=== PATIENT | female | born 1950 | race Caucasian/White ===

== ENCOUNTER 2017-09-12 08:47 | Inpatient (IN) | payer MEDICARE ==
[~2017-09-12] VITALS: Ht 160 cm; Wt 56.0 kg
[2017-09-12] MEDS ORDERED: CLOP75TA PO (09:41)
[2017-09-12] MEDS ORDERED: POTA595T (09:41)
[2017-09-12] MEDS ORDERED: BUSP15TA PO (09:41)
[2017-09-12] MEDS ORDERED: OMEGCAP PO (09:41)
[2017-09-12] MEDS ORDERED: COQ-100C5 (09:41)
[2017-09-12] MEDS ORDERED: ACET300T2 PO (09:41)
[2017-09-12] MEDS ORDERED: CYCL10TA PO (09:41)
[2017-09-12] MEDS ORDERED: VITA2000 PO (09:41)
[2017-09-12] MEDS ORDERED: LOVA10TA PO (09:41)
[2017-09-12] MEDS ORDERED: FLAX100015 (09:41)
[2017-09-12] MEDS ORDERED: CALC1TAB87 PO (09:41)
[2017-09-12] MEDS ORDERED: ZOLP10TA3 PO (09:41)
[2017-09-12] MEDS ORDERED: MULT1TAB46 (09:41)
[2017-09-12] MEDS ORDERED: VITA100021 SL (09:41)
[2017-09-12] MEDS ORDERED: LISI10TA3 PO (09:41)
[2017-09-12] MEDS ORDERED: VITA250T3 PO (09:41)
[2017-09-12] MEDS ORDERED: IRON18TA (09:41)
[2017-09-12] MEDS ORDERED: MELA1TAB18 PO (09:41)
[2017-09-12] MEDS ORDERED: MAGN400C3 (09:41)
[2017-09-12] MEDS ORDERED: CHLORHEXIDINE GLUCONATE 2 % 1 PACK (2 CLOTHS) TOPICAL PRN (10:00)
[2017-09-12] MEDS ORDERED: POVIDONE IODINE 5% (ANTISEPSIS KIT) 4 APPLICATIONS EACH NARE PRN (10:00)
[2017-09-12] MEDS ORDERED: LACTATED RINGER'S 1000 ML IV PRN (10:00)
[2017-09-12] MEDS ORDERED: SODIUM CHLORID 0.9% 500 ML IV PRN (10:00)
[2017-09-12] MEDS ORDERED: METOPROLOL TARTRATE 25 MG TAB PO PRN (10:00)
--- NOTE | 2017-09-12 10:00 | RADRPT ---
EXAM DATE: 09/12/2017 9:51 AM EDT AGE/SEX: 66 years / Female INDICATIONS: Evaluate for pneumonia, pneumothorax and communicable diseases. Pre-op for fem pop. CLINICAL DATA: This is the patient's initial encounter. Patient reports that signs and symptoms have been present for 1 day and indicates a pain score of 0/10. MEDICAL/SURGICAL HISTORY: None. None. COMPARISON: No prior exams available for comparison. FINDINGS: A single AP view of the chest demonstrates the lungs to be symmetrically aerated without evidence of mass, infiltrate or effusion. The cardiomediastinal contours are unremarkable. Osseous structures a re intact. CONCLUSION: No acute cardiopulmonary findings. Electronically signed by: Colin Quintero MD 09/12/2017 9:58 AM EDT
[2017-09-12] MEDS ORDERED: ceFAZolin 2 GM PREMIX 0 ML ONE (10:23)
[2017-09-12] MEDS ORDERED: HEPARIN SODIUM - SQ 10,000 UNITS/ML VIAL ONE ×2 (10:23→12:20)
[2017-09-12] MEDS ORDERED: HEPARIN SODIUM - IV 10,000 UNITS/10 ML VIAL ONE ×2 (10:24→12:21)
[2017-09-12] MEDS ORDERED: PROTAMINE SULFATE 50 MG/5 ML VIAL ONE ×2 (10:24→12:21)
[2017-09-12 10:39] LABS: AUTOMATED NEUTROPHIL # 5.2 TH/MM3 (1.8-7.7); BASOPHIL # 0.1 TH/MM3 (0-0.2); BASOPHIL % 1.1 % (0.0-2.0); EOSINOPHIL # 0.2 TH/MM3 (0-0.4); EOSINOPHIL % 2.8 % (0.0-4.0); HEMATOCRIT 35.4 % (35.0-46.0); HEMOGLOBIN 11.8 GM/DL (11.6-15.3); LYMPH % 20.6 % (9.0-44.0); LYMPHOCYTE # 1.5 TH/MM3 (1.0-4.8); MEAN CELL VOLUME 95.6 FL (80.0-100.0); MEAN CORPUSCULAR HEMOGLOBIN 31.9 PG (27.0-34.0); MEAN CORPUSCULAR HGB CONC 33.4 % (32.0-36.0); MEAN PLATELET VOLUME 6.9 FL (7.0-11.0); MONO % 5.2 % (0.0-8.0); MONOCYTE # 0.4 TH/MM3 (0-0.9); NEUT % 70.3 % (16.0-70.0); PLATELET COUNT 543 TH/MM3 (150-450); RED CELL DISTRIBUTION WIDTH 14.4 % (11.6-17.2); WHITE BLOOD COUNT 7.4 TH/MM3 (4.0-11.0)
[2017-09-12 10:47] LABS: INTERNATIONAL NORMALIZED RATIO 0.9 RATIO; PROTHROMBIN TIME - PATIENT 9.6 SEC (9.8-11.6)
[2017-09-12 11:15] LABS: ALBUMIN 2.9 GM/DL (3.4-5.0); ALT (GPT) 19 U/L (10-53); AST (GOT) 15 U/L (15-37); BICARBONATE 24.5 MEQ/L (21.0-32.0); BLOOD UREA NITROGEN 11 MG/DL (7-18); CALCIUM 9.2 MG/DL (8.5-10.1); CHLORIDE 108 MEQ/L (98-107); CREATININE 0.81 MG/DL (0.50-1.00); GLOMERULAR FILTRATION RATE 70 ML/MIN (>89); GLUCOSE,RANDOM 87 MG/DL (74-106); SODIUM (NA) 141 MEQ/L (136-145)
[2017-09-12 11:17] LABS: ALKALINE PHOSPHATASE 64 U/L (45-117); TOTAL BILIRUBIN ADULT 0.3 MG/DL (0.2-1.0); TOTAL PROTEIN 6.2 GM/DL (6.4-8.2)
[2017-09-12] MEDS ORDERED: ePHEDrine/NS 25 MG/5 ML SYRINGE IV ONE (12:00)
[2017-09-12] MEDS ORDERED: DEXAMETHASONE SOD PHOS 4 MG/ML VIAL IV ONE (12:00)
[2017-09-12] MEDS ORDERED: GLYCOPYRROLATE 1 MG/5 ML SYRINGE IV PUSH ONE (12:00)
[2017-09-12] MEDS ORDERED: PROPOFOL 200 MG/20 ML AMP IV ONE (12:00)
[2017-09-12] MEDS ORDERED: ONDANSETRON HCL 4 MG/2 ML VIAL IV PUSH ONE (12:00)
[2017-09-12] MEDS ORDERED: ROCURONIUM INJ 50 MG/5 ML SYRINGE IV PUSH ONE (12:00)
[2017-09-12] MEDS ORDERED: LIDOCAINE HCL 1% PF 5 ML SYRINGE OTHER ONE (12:00)
[2017-09-12] MEDS ORDERED: NEOSTIGMINE 5 MG/5 ML SYRINGE IV PUSH ONE (12:00)
[2017-09-12] MEDS ORDERED: PHENYLEPHRINE HCL 10 MG/ML VIAL IV ONE (12:00)
[2017-09-12] MEDS ORDERED: PHENYLEPH/NS 1000 MCG/10 ML SYR IV ONE (12:00)
[2017-09-12] MEDS ORDERED: ceFAZolin 2 GM PREMIX 50 ML ONE (12:20)
[2017-09-12] MEDS ORDERED: DO NOT ADM ANY ANTICOAGULANT DRUGS PRN (17:40)
[2017-09-12] MEDS ORDERED: SODIUM CHLORIDE 0.9% FLUSH 10 ML FLUSH IV FLUSH PRN ×2 (17:45)
[2017-09-12] MEDS ORDERED: Post-op Orders (for Pharmacy) XX ONE ×3 (17:45)
[2017-09-12] MEDS ORDERED: NALOXONE HCL 0.4 MG/ML AMP IV PUSH PRN ×2 (17:45)
[2017-09-12] MEDS ORDERED: MORPHINE SULFATE 4 MG/ML INJ ONE (17:47)
[2017-09-12] MEDS ORDERED: MIDAZOLAM HCL 2 MG/2 ML VIAL ONE (17:47)
[2017-09-12] MEDS ORDERED: *morphine SULFATE 4 MG/ML PERIprocedure ONLY ONE ×2 (18:19→19:41)
[2017-09-12] MEDS: SODIUM CHLOR 0.9% 1000 ML INJ 1,000 ML IV SCH (18:30)
[2017-09-12] MEDS ORDERED: MORPHINE SULFATE 4 MG/ML INJ IV PUSH PRN (18:30)
[2017-09-12] MEDS: CYCLOBENZAPRINE HCL 10 MG TAB PO SCH (18:30)
[2017-09-12] MEDS: busPIRone HCL 5 MG TAB PO SCH (20:50)
[2017-09-12] MEDS: PANTOPRAZOLE SOD 40 MG DELAYED RELEASE TAB PO SCH (20:50)
[2017-09-12] MEDS ORDERED: SODIUM CHLORIDE 0.9% FLUSH 10 ML FLUSH IV FLUSH SCH (21:00)
[2017-09-12] MEDS ORDERED: NON-FORMULARY DRUG (Fish Oil-Cholecalciferol (Omega-3 Fish Oil/Vitamin) 1 CAP) PO SCH (21:00)
[2017-09-12] MEDS: SODIUM CHLORIDE 0.9% FLUSH 10 ML FLUSH IV FLUSH SCH (21:00)
[2017-09-12] MEDS: oxyCODONE/ACETAMINOPHEN 5 MG/325 MG TAB PO PRN (22:48)
--- NOTE | 2017-09-12 22:53 | EKG ---
Date Performed: 09/12/2017 Time Performed: 09:51:54 PTAGE: 66 years EKG: Sinus rhythm LOW QRS VOLTAGE IN PRECORDIAL LEADS BORDERLINE ECG NO PREVIOUS TRACING DOCTOR: Marely Messer Interpretating Date/Time 09/12/2017 22:51:20
[2017-09-13] MEDS: SODIUM CHLOR 0.9% 1000 ML INJ 1,000 ML IV SCH (04:00)
[2017-09-13] MEDS: oxyCODONE/ACETAMINOPHEN 5 MG/325 MG TAB PO PRN ×5 (06:43→23:22)
[2017-09-13 07:43] LABS: AUTOMATED NEUTROPHIL # 11.2 TH/MM3 (1.8-7.7); BASOPHIL % 0.1 % (0.0-2.0); HEMATOCRIT 27.7 % (35.0-46.0); HEMOGLOBIN 9.2 GM/DL (11.6-15.3); LYMPH % 7.4 % (9.0-44.0); LYMPHOCYTE # 0.9 TH/MM3 (1.0-4.8); MEAN CELL VOLUME 96.8 FL (80.0-100.0); MEAN CORPUSCULAR HEMOGLOBIN 32.3 PG (27.0-34.0); MEAN CORPUSCULAR HGB CONC 33.4 % (32.0-36.0); MEAN PLATELET VOLUME 6.6 FL (7.0-11.0); MONO % 4.4 % (0.0-8.0); MONOCYTE # 0.6 TH/MM3 (0-0.9); NEUT % 88.1 % (16.0-70.0); PLATELET COUNT 457 TH/MM3 (150-450); RED BLOOD COUNT 2.86 MIL/MM3 (4.00-5.30); RED CELL DISTRIBUTION WIDTH 14.7 % (11.6-17.2); WHITE BLOOD COUNT 12.7 TH/MM3 (4.0-11.0)
[2017-09-13] MEDS: LISINOPRIL 10 MG TAB PO SCH (08:00)
[2017-09-13] MEDS: CYCLOBENZAPRINE HCL 10 MG TAB PO SCH ×3 (08:00→18:38)
[2017-09-13] MEDS: PRAVASTATIN SOD 10 MG TAB PO SCH (08:00)
[2017-09-13] MEDS: SODIUM CHLORIDE 0.9% FLUSH 10 ML FLUSH IV FLUSH SCH ×2 (08:00→21:00)
[2017-09-13] MEDS: CLOPIDOGREL 75 MG TAB PO SCH (08:00)
[2017-09-13] MEDS: busPIRone HCL 5 MG TAB PO SCH ×3 (08:00→18:38)
[2017-09-13 08:22] LABS: BICARBONATE 24.8 MEQ/L (21.0-32.0); CALCIUM 7.8 MG/DL (8.5-10.1); CREATININE 0.76 MG/DL (0.50-1.00)
[2017-09-13 08:27] LABS: BANDS 5 % (0-6); LYMPHOCYTES 7 % (9-44); MONOCYTES 7 % (0-8); NEUTROPHIL # MANUAL DIFF 10.9 TH/MM3 (1.8-7.7); POLYS (SEG NEUTROPHILS) 81 % (16-70)
[2017-09-13 08:28] LABS: OVALOCYTES 1+ (NORMAL)
--- NOTE | 2017-09-13 10:45 | PD.CAR.PN ---
CVT Progress Note Subjective/Hospital Course: Patient is status post a right femoral-popliteal bypass and right femoral endarterectomy Incisions are clean and dry Excellent signal in the graft, popliteal artery and very strong posterior tibial artery Doppler pulse and weak dorsalis pedis pulse Foot nice and warm and well-perfused Out of bed and ambulate will see how patient does today and she may be able to go home this evening or tomorrow Objective: Vital Signs Date Time Temp Pulse Resp B/P (MAP) Pulse Ox O2 Delivery O2 Flow Rate FiO2 09/13/17 08:00 97.8 78 18 129/59 (82) 98 Room Air 09/13/17 06:17 74 16 148/65 (92) 99 Room Air 09/13/17 04:02 97.8 77 16 108/58 (75) 99 Room Air 09/13/17 00:02 98.1 82 14 128/60 (82) 97 Room Air 09/12/17 23:00 73 14 136/63 (87) 98 Room Air 09/12/17 22:00 68 18 121/58 (79) 97 Room Air 09/12/17 21:01 80 16 160/70 (100) 95 Nasal Cannula 3 09/12/17 20:00 69 14 149/70 (96) 98 Nasal Cannula 3 09/12/17 19:00 65 14 155/70 (98) 98 Nasal Cannula 3 09/12/17 18:30 65 14 156/69 (98) 97 Nasal Cannula 3 09/12/17 18:15 58 14 171/70 (103) 100 Nasal Cannula 3 09/12/17 18:00 65 14 135/65 (88) 100 Nasal Cannula 3 09/12/17 17:45 72 14 111/56 (74) 100 Nasal Cannula 3 09/12/17 17:38 97.8 75 14 122/58 (79) 100 Nasal Cannula Labs: Laboratory Tests Test 09/13/17 07:33 White Blood Count 12.7 TH/MM3 (4.0-11.0) Red Blood Count 2.86 MIL/MM3 (4.00-5.30) Hemoglobin 9.2 GM/DL (11.6-15.3) Hematocrit 27.7 % (35.0-46.0) Mean Corpuscular Volume 96.8 FL (80.0-100.0) Mean Corpuscular Hemoglobin 32.3 PG (27.0-34.0) Mean Corpuscular Hemoglobin Concent 33.4 % (32.0-36.0) Red Cell Distribution Width 14.7 % (11.6-17.2) Platelet Count 457 TH/MM3 (150-450) Mean Platelet Volume 6.6 FL (7.0-11.0) Neutrophils (%) (Auto) 88.1 % (16.0-70.0) Lymphocytes (%) (Auto) 7.4 % (9.0-44.0) Monocytes (%) (Auto) 4.4 % (0.0-8.0) Eosinophils (%) (Auto) 0.0 % (0.0-4.0) Basophils (%) (Auto) 0.1 % (0.0-2.0) Neutrophils # (Auto) 11.2 TH/MM3 (1.8-7.7) Lymphocytes # (Auto) 0.9 TH/MM3 (1.0-4.8) Monocytes # (Auto) 0.6 TH/MM3 (0-0.9) Eosinophils # (Auto) 0.0 TH/MM3 (0-0.4) Basophils # (Auto) 0.0 TH/MM3 (0-0.2) CBC Comment AUTO DIFF Differential Total Cells Counted 100 Neutrophils % (Manual) 81 % (16-70) Band Neutrophils % 5 % (0-6) Lymphocytes % 7 % (9-44) Monocytes % 7 % (0-8) Neutrophils # (Manual) 10.9 TH/MM3 (1.8-7.7) Differential Comment FINAL DIFF MANUAL Platelet Estimate HIGH (NORMAL) Platelet Morphology Comment NORMAL (NORMAL) Ovalocytes 1+ (NORMAL) Blood Urea Nitrogen 10 MG/DL (7-18) Creatinine 0.76 MG/DL (0.50-1.00) Random Glucose 126 MG/DL (74-106) Calcium Level 7.8 MG/DL (8.5-10.1) Sodium Level 142 MEQ/L (136-145) Potassium Level 5.1 MEQ/L (3.5-5.1) Chloride Level 111 MEQ/L (98-107) Carbon Dioxide Level 24.8 MEQ/L (21.0-32.0) Anion Gap 6 MEQ/L (5-15) Estimat Glomerular Filtration Rate 76 ML/MIN (>89) Result Diagram: 09/13/17 0733 09/13/17 0733 Nidhi Lopez MD Sep 13, 2017 10:45
[2017-09-13 12:00] VITALS: BP 127/59; PULSE 73; RESP 18; TEMP 97.6; O2SAT 99
[2017-09-13] MEDS: ENOXAPARIN SODIUM 40 MG/0.4 ML SYRINGE SQ SCH (14:31)
[2017-09-13 16:00] VITALS: BP 117/59; PULSE 79; RESP 18; TEMP 97.8; O2SAT 100
[2017-09-13 20:00] VITALS: BP 120/56; PULSE 77; RESP 16; TEMP 98.1; O2SAT 95
[2017-09-13] MEDS: PANTOPRAZOLE SOD 40 MG DELAYED RELEASE TAB PO SCH (20:28)
[2017-09-13] MEDS: ZOLPIDEM TARTRATE 10 MG TAB PO PRN ×2 (23:22)
[2017-09-14] VITALS: BP 131/62; PULSE 80; RESP 16; TEMP 98.2; O2SAT 99
[2017-09-14 08:00] VITALS: BP 142/70; PULSE 75; RESP 16; TEMP 98.2; O2SAT 97
[2017-09-14] MEDS: CYCLOBENZAPRINE HCL 10 MG TAB PO SCH ×2 (08:32→12:50)
[2017-09-14] MEDS: PRAVASTATIN SOD 10 MG TAB PO SCH (08:32)
[2017-09-14] MEDS: LISINOPRIL 10 MG TAB PO SCH (08:32)
[2017-09-14] MEDS: CLOPIDOGREL 75 MG TAB PO SCH (08:32)
[2017-09-14] MEDS: busPIRone HCL 5 MG TAB PO SCH ×2 (08:32→12:50)
[2017-09-14] MEDS: oxyCODONE/ACETAMINOPHEN 5 MG/325 MG TAB PO PRN ×2 (08:33→12:50)
[2017-09-14] MEDS: SODIUM CHLORIDE 0.9% FLUSH 10 ML FLUSH IV FLUSH SCH (08:34)
--- NOTE | 2017-09-14 10:55 | PD.CAR.PN ---
CVT Progress Note Subjective/Hospital Course: Patient is status post a right femoral-popliteal bypass and right femoral endarterectomy Incisions are clean and dry Excellent signal in the graft, popliteal artery and very strong posterior tibial artery Doppler pulse and weak dorsalis pedis pulse Foot nice and warm and well-perfused Out of bed and ambulate will see how patient does today and she may be able to go home this evening or tomorrow 09/14/2017 Incisions groin and popliteal space clean and dry Brisk Doppler signal in the graft as well popliteal and posterior tibial Foot nice and warm Patient ambulating DC patient today Objective: Vital Signs Date Time Temp Pulse Resp B/P (MAP) Pulse Ox O2 Delivery O2 Flow Rate FiO2 09/14/17 08:00 98.2 75 16 142/70 (94) 97 09/14/17 00:00 98.2 80 16 131/62 (85) 99 09/13/17 20:00 98.1 77 16 120/56 (77) 95 09/13/17 16:00 97.8 79 18 117/59 (78) 100 09/13/17 12:00 97.6 73 18 127/59 (81) 99 Result Diagram: 09/13/17 0733 09/13/17 0733 Nidhi Lopez MD Sep 14, 2017 10:55
[2017-09-14] MEDS ORDERED: OXYC1TAB63 PO (11:52)
[2017-09-14] MEDS: ENOXAPARIN SODIUM 40 MG/0.4 ML SYRINGE SQ SCH (12:50)
--- NOTE | 2017-09-16 16:21 | MP ---
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 OPERATIVE PROCEDURE: Right femoropopliteal bypass graft, right common femoral, external iliac endarterectomy. SURGEON: MD John ANESTHESIA: General. ESTIMATED BLOOD LOSS: 100 mL INDICATIONS: The patient prepped and draped in usual fashion and first a right groin incision is made. The right common, external, and superficial femoral arteries are isolated and so is the deep femoral artery. All are placed in vessel loops. The popliteal space is opened by medial incision and popliteal arteries isolated. The popliteal artery is fairly suitable for anastomosis, slightly small, probably measuring about 5 mm. A decision is made to use an 8 mm ringed [place]-Erik graft, which is then passed from proximal to distal, using a Kim-Wick tunneler. The distal anastomosis is attended first. The patient is given 5000 units of heparin. A longitudinal incision is placed in the popliteal artery and then a PTFE graft is cut under oblique angle and anastomosis created with a running 6-0 Prolene. The clamps are now removed from the vessel and placed on the graft which is flushed with heparinized saline. Proximal anastomoses now attended. Incision is now made in the common femoral artery over the femoral artery and slightly up into the external iliac artery, creating a long incision. There is a huge posterior plaque that nearly completely closed the common femoral and external iliac arteries. This one is removed using a [place] dissected in the media plane. Small debris is now removed. A profundoplasty is carried out and there is excellent bleeding back. The anastomosis now created by spatulating the graft in a very oblique angle over the length of the incision using running 5-0 Prolene. When completed, the blood flow is reestablished in the usual order and fashion by removing the [place]insky clamp and profunda clamps. The area is irrigated with copious amounts of saline. Meticulous hemostasis assured. Incision closed with 0 Vicryl in layers and a 4-0 Monocryl. Same is carried out in the popliteal space. At the end of the procedure, the patient has a bounding pulse distally and foot is nice and warm. MD NORAH Farmer/ISRA[place] , 03:48 PM , 04:20 PM
== END 2017-09-14 14:14 | disposition home or self-care (01) | DRG 272 ==
LOC: HSDC 08:47 → EDSTATUS 11:00 → HSDI 17:40 → HPAC 21:08 → N07B 09-13 11:33
PROVIDERS: ADMIT Surgery; ATTEND Surgery
PROC: 04CH0ZZ Extirpation of Matter from Right External Iliac Artery, Open Approach (ICD-10-PCS; 2017-09-12)
PROC: 04CK0ZZ Extirpation of Matter from Right Femoral Artery, Open Approach (ICD-10-PCS; 2017-09-12)
PROC: 041K0ZL Bypass Right Femoral Artery to Popliteal Artery, Open Approach (ICD-10-PCS; principal; 2017-09-12 14:44)
DX: I70.203 Unspecified atherosclerosis of native arteries of extremities, bilateral legs (principal); J44.9 Chronic obstructive pulmonary disease, unspecified; I10 Essential (primary) hypertension; Z87.891 Personal history of nicotine dependence; K90.0 Celiac disease
CPT/HCPCS: 71045; 80048; 80053; 85007; 85025; 85027; 85610; 86850; 86900; 86901; 86920; 88304; 88311; 93005; 94150; C1768; J0690; J1100; J1644; J1650; J2250; J2270; J2370; J2405; J2710; J2720; J3010; J7030; J7120